=== PATIENT | female | born 1995 | race Caucasian/White ===

== ENCOUNTER 2016-12-21 13:27 | Emergency (ER) | payer OTHER ==
[~2016-12-21] VITALS: Ht 162.6 cm; Wt 61.4 kg
[2016-12-21] MEDS ORDERED: ZOLO50TA PO (13:37)
[2016-12-21] MEDS ORDERED: ALPR0.5T3 (13:37)
--- NOTE | 2016-12-21 15:46 | REP ---
Lumbar spine series: Five views. History: Trauma. Findings: Lumbar vertebral body heights are preserved. Alignment is normal. No fracture or collapse is seen. Pedicles and posterior elements are intact. Psoas margins are symmetric. Sacrum and SI joints are unremarkable. Impression: Negative lumbar spine series. No traumatic abnormality. Signed by Jimmy Nicole MD 12/21/2016 04:26 P
[2016-12-21 16:19] VITALS: BP 121/69
== END 2016-12-21 16:19 | disposition home or self-care (01) ==
LOC: M ED 13:27
DX: S30.0XXA Contusion of lower back and pelvis, initial encounter (principal); W10.8XXA Fall (on) (from) other stairs and steps, initial encounter; Y92.099 Unspecified place in other non-institutional residence as the place of occurrence of the external cause; Y93.01 Activity, walking, marching and hiking; Y99.9 Unspecified external cause status

== ENCOUNTER 2017-04-18 20:25 | Emergency (ER) | payer OTHER ==
[~2017-04-18] VITALS: Ht 162.6 cm; Wt 61.4 kg
[~2017-04-18 20:25] MED LIST: ALPR0.5T3; ZOLO50TA PO
[2017-04-18] MEDS ORDERED: NS 1,000 ML IV ONE (21:15)
[2017-04-18 21:36] LABS: BASO # 0.1 10^3/uL (0.0-0.2); BASO % 0.5 % (0.0-1.0); EOS # 0.1 10^3/uL (0.0-0.50); IMMATURE GRANULOCYTE % 0.5 % (0-0); LYMPH # 2.7 10^3/uL (1.5-6.5); LYMPH % 29.2 % (24.0-44.0); MEAN CORPUSCULAR HEMOGLOBIN 31.2 pg (27.0-33.0); MEAN CORPUSCULAR HGB CONC 35.2 g/dl (32.0-36.5); MEAN CORPUSCULAR VOLUME 88.8 fl (80.0-96.0); MONO # 0.7 10^3/uL (0.0-0.8); MONO % 7.9 % (0.0-5.0); NEUTROPHILS # 5.7 10^3/uL (1.8-7.7); NEUTROPHILS % 60.9 % (36.0-66.0); PLATELET COUNT, AUTOMATED 337 10^3/uL (150-450); WHITE BLOOD COUNT 9.4 10^3/uL (4.0-10.0)
[2017-04-18 21:47] LABS: INR 1.09
[2017-04-18 21:51] LABS: CONTROL LINE HCG INT CTR LINE PRESENT
[2017-04-18 21:53] LABS: ERYTHROCYTE SEDIMENTATION RATE 2 mm/hr (0-20)
[2017-04-18 21:59] LABS: ALBUMIN 4.8 GM/DL (3.2-5.2); ALKALINE PHOSPHATASE 66 U/L (45-117); ALT/SGPT 33 U/L (12-78); ANION GAP 6 MEQ/L (8-16); AST/SGOT 16 U/L (7-37); BILIRUBIN,DIRECT 0.4 MG/DL (0.0-0.2); BILIRUBIN,TOTAL 1.9 MG/DL (0.2-1.0); BLOOD UREA NITROGEN 8 MG/DL (7-18); CALCIUM LEVEL 9.4 MG/DL (8.5-10.1); CARBON DIOXIDE LEVEL 28 MEQ/L (21-32); CHLORIDE LEVEL 105 MEQ/L (98-107); CREATININE FOR GFR 0.74 MG/DL (0.55-1.02); GLOMERULAR FILTRATION RATE > 60.0 (>60); GLUCOSE, FASTING 89 MG/DL (70-105); POTASSIUM SERUM 3.9 MEQ/L (3.5-5.1); SODIUM LEVEL 139 MEQ/L (136-145); TOTAL PROTEIN 8.5 GM/DL (6.4-8.2)
[2017-04-18] MEDS ORDERED: ISOVUE-370 76% 100ML VIAL (Q9967) As Ordered ONE (22:48)
[2017-04-18 23:58] VITALS: BP 133/76
--- NOTE | 2017-04-19 00:40 | REPUSA ---
CLINICAL HISTORY: Dyspnea, exclude PE. TECHNIQUE: Multiple incremental axial, coronal and oblique images are obtained from the thoracic inle t to the upper abdomen. Intravenous contrast material was administered as per pulmonary embolism prot ocol. COMMENTS: There is excellent opacification of pulmonary arterial system without evidence for pulmonary embolism . Aorta is of normal caliber without evidence for dissection or aneurysm. There is no evidence of pleural or parenchymal mass. There are no pleural effusions. There is no evid ence of hilar or mediastinal lymphadenopathy. The heart and great vessels are within normal limits. Images of the upper abdomen demonstrate no evidence of adrenal mass. The bony structures are free of lytic or blastic lesions. IMPRESSION: No evidence for pulmonary embolism. Thank you for your kind referral of this patient.
--- NOTE | 2017-04-19 05:57 | ECGEPIP ---
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
--- NOTE | 2017-04-21 08:46 | REP ---
Clinical: Acute chest pain. Comparison: None. Technique: PA and lateral. Findings: The mediastinum and cardiac silhouette are normal. The lung marte are clear and without acute consolidation, effusion, or pneumothorax. The skeletal structures are intact and normal. Impression: 1. No acute cardiopulmonary process. Signed by Preston Gonsales MD 04/21/2017 08:37 A
== END 2017-04-19 00:54 | disposition home or self-care (01) ==
LOC: M ED 20:25
DX: R07.9 Chest pain, unspecified (principal); Z87.891 Personal history of nicotine dependence
CPT/HCPCS: 71020; 71275; 80048; 80076; 82550; 82553; 83690; 84443; 84703; 85025; 85379; 85610; 85652; 85730; 86140; 93005; 99284; Q9967